=== PATIENT | female | born 1990 | race Caucasian/White ===

== ENCOUNTER 2020-06-25 17:29 | Emergency (ER) | payer OTHER ==
[2020-06-25 18:00] VITALS: BMI 23.5
[2020-06-25] MEDS ORDERED: IBUPROFEN 400 MG TABLET (FP) PO ONE ×2 (18:14→18:19)
[2020-06-25 18:27] VITALS: BP 110/65; PULSE 77; TEMP 98.6
== END 2020-06-25 18:19 | disposition home or self-care (01) ==
LOC: JER 17:29
DX: M25.512 Pain in left shoulder (principal); M54.2 Cervicalgia; M54.5 Low back pain
CPT/HCPCS: 99283-25